=== PATIENT | female | born 1975 | race Caucasian/White ===

== ENCOUNTER 2022-03-08 12:36 | Outpatient (CLI) | payer OTHER, SELFPAY | END 2022-03-08 12:37 | disposition home or self-care (01) | PROVIDERS: PCP Family Medicine; Visit Provider Nurse Practitioner Family | DX: R31.9 Hematuria, unspecified (principal); R35.0 Frequency of micturition | CPT/HCPCS: 87086 ==

== ENCOUNTER 2022-05-28 10:36 | Outpatient (CLI) | payer OTHER, SELFPAY ==
--- NOTE | 2022-05-28 14:00 | CRLHL7_ITS ---
For Patients: As a result of the Century Cures Act, medical imaging exams and procedure reports are released immediately into your electronic medical record. You may view this report before your referring provider. If you have questions, please contact your health care provider. BILATERAL SCREENING MAMMOGRAM WITH COMPUTER-AIDED DETECTION AND TOMOSYNTHESIS TECHNIQUE: CC and MLO views were obtained. These mammographic images have been obtained using full-field digital technique. These mammographic images were interpreted with the benefit of computer-aided detection. Breast Tomosynthesis was used in this interpretation. COMPARISON FILM: 05/13/21, 04/30/20, 04/27/19. FINDINGS: The breasts are heterogeneously dense, which may obscure small masses IMPRESSION: There is no radiographic evidence for malignancy. ASSESSMENT: BI-RADS Category 2: Benign RECOMMENDATION: Routine screening mammogram in 1 year. A lay language report of this examination will be provided to the patient. Claude Fish M.D. Diagnostic Radiologist [email or web address] DYLAN/Dictated by: Claude Fish MD @ 05/28/2022 11:41:00 AM (Electronically Signed)
== END 2022-05-28 10:37 | disposition home or self-care (01) ==
LOC: MAMMO 10:37
PROVIDERS: PCP Family Medicine; Visit Provider Obstetrics & Gynecology
DX: Z12.31 Encounter for screening mammogram for malignant neoplasm of breast (principal); R92.2 Inconclusive mammogram
CPT/HCPCS: 77063; 77067

== ENCOUNTER 2022-09-11 07:35 | Outpatient (CLI) | payer OTHER, SELFPAY | END 2022-09-11 07:36 | disposition home or self-care (01) | LOC: NFLDREF 12:51 | PROVIDERS: PCP Family Medicine; Referring Provider Family Medicine; Visit Provider Obstetrics & Gynecology | DX: Z01.419 Encounter for gynecological examination (general) (routine) without abnormal findings (principal); Z13.6 Encounter for screening for cardiovascular disorders; Z13.1 Encounter for screening for diabetes mellitus | CPT/HCPCS: 80061; 82947 ==

== ENCOUNTER 2023-06-16 08:58 | Outpatient (CLI) | payer OTHER, SELFPAY ==
--- OUTSIDE RECORDS SUMMARY | 2023-06-16 09:00 | XMS_ITS | Clinical Summary ---
Author Name Unknown Organization [facility] Address [place], [place] [address] Care Team Providers Care Protein Chemist Name Role Phone Theresa Carter MD Primary Care Provide r Allergies Active Allergy Reactions Criticality Noted Date Comments Hydrocodone-Acetaminophen Nausea And Vomiting 0 09/09/2012 Medications Medication Sig Dispensed Refills Start Date End Date Status multivitamin (MVI) tablet Take 1 tablet by mouth once daily. 0 09/09/2012 Active SUMAtriptan (IMITREX) 100 mg tabletIndications: Headache syndrome Take 0.5 tablets by mouth every 2 hours if needed for Migraine. Give at minimum 2hrs apart. Max Dose: 200mg per 24hrs. 10 tablet 3 12/22/2019 Active galcanezumab-gnlm (Emgality Pen) 120 mg/mL pnij Inject 120 mg subcutaneous every 4 weeks. 0 09/18/2020 Active acetaminophen-code ine (TYLENOL #3) 300-30 mg per tabletIndications: Post-traumatic headache, not intractable, unspecified chronicity pattern Take 1 Tablet by mouth every 6 hours if needed for Pain. Max acetaminophen dose: 4000mg in 24 hrs.TAKE ONE TABLET BY MOUTH EVERY 6 HOURS IF NEEDED FOR HEADACHE MAX. ACETAMINOPHEN DOSE: 4000MG IN 24 HOURS 30 Tablet 1 09/17/2021 Active topiramate (TOPAMAX) 100 mg tablet Take 100 mg by mouth once daily. 0 09/02/2022 Active citalopram (CELEXA) 40 mg tabletIndications: Depressive disorder Take 1 Tablet (40 mg) by mouth once daily. 90 Tablet 3 09/18/2022 Active gabapentin (NEURONTIN) 300 mg capsuleIndications :Neuritis of right ulnar nerve Take 1 Capsule (300 mg) by mouth at bedtime. 30 Capsule 2 02/06/2023 Active methylphenidate HCl (Ritalin) 5 mg tabletIndications: Traumatic brain injury, without loss of consciousness, subsequent encounter Take 1 Tablet (5 mg) by mouth two times daily. 60 Tablet 0 04/22/2023 Active Active Problems Problem Noted Date Diagnosed Date Chronic post-traumatic headache, not intractable 03/24/2017 Traumatic brain injury without loss of conscious ness 03/24/2017 Depressive disorder, not elsewhere classified Resolved Problems Problem Noted Date Diagnosed Date Resolved Date Traumatic brain injury witho ut loss of consciousness 08/10/2015 03/24/2017 TBI (traumatic brain injury) 09/23/2012 08/10/2015 Word finding difficulty 09/23/2012 05/0 01/2015 Post-traumatic headache 09/09/201203/08 Encounters Date Type Department Care Team Description 04/15/2023 Telephone [facility] [address] [place] [address] Theresa Carter MD Prior Authorization (Ritalin 5 mg tablet DENIED) 04/14/2023 Refill [facility] [address] [place] [address] Theresa Carter MD Refill Request (Ritalin) from Last 3 Months Immunizations Name Administration Dates Next Due AMB INFLUENZA, IIV4 (AGE=>6MOS) MDV (Flu Clinic Only) 04/26/2019 AMB Influenza, IIV3 (Age >=3 years)(Flu Clinic O nly) 03/16/2013 COVID-19 vaccine (Booodl 30mcg/0.3mL) P F, MDV 07/24/2020,07/03/2020 Hep B (Hepatitis B (Adult) Recombinant Adjuvante d) 07/25/2021,05/16/2021 Influenza, IIV3 (Age 6-35 mos) 06/14/2012 Influenza, IIV4 05/04/2015 Influenza,CCIIV4 PRESERV FREE 03/13/2020 Td, Preservative Free (age >= 7 Years) 9 Tdap 11/20/2020,01/15/2009 Social History Tobacco Use Types Packs/Day Years Used Date Smoking Tobacco: Never Smokeless Tobacco: Never Tobacco Cessation:Counseling Given: Yes Alcohol Use Standard Drinks/Week Comments Yes 1 (1 standard drink = 0.6 oz pur e alcohol) PHQ-2 Answer Date Recorded PHQ-2 TOTAL SCORE 0 09/18/2022 Social Connections Answer Date Recorded Frequency of Communication with Friends and Fami ly Not on file 03/20/2023 Financial Resource Strain Answer Date R ecorded Difficulty of Paying Living Expenses 3 03/17/2022 Difficulty of Paying Living Expenses Not on file 03/17/2022 Food Insecurity Answer Date Recorded Worried About Running Out of Food in the Last Ye ar 1 03/17/2022 Transportation Needs Answer Date Record ed Lack of Transportation (Medical) 1 03/17/2022 Housing Stability Answer Date Recorded Unable to Pay for Housing in the Last Year 1 03/17/2022 Sex and Gender Information Value Date Recorded Sex Assigned at Female 03/14/2022 2:02 PM CDT Gender Identity Not on file Sexual Orientation Not on file Obstetrics History Para Term AB IAB SAB Ectopic Multiple Livin g Live Births 4 2 2 2 Date Outcome GA Total Labor Labor/2nd/3rd Weight Sex Delivery Anes PTL Ellie A1 A5 Name Cl in Last Filed Vital Signs Vital Sign Reading Time Taken Comments Blood Pressure 126/84 02/06/2023 10:04 AM CDT Pulse 77 02/06/2023 10:04 AM CDT Temperature 37 ??C (98.6 ??F) 02/06/2023 10:04 AM CDT Respiratory Rate 10 07/04/2022 9:45 AM RACKING TECHNICIAN Oxygen Saturation 99% 02/06/2023 10:04 AM CDT Inhaled Oxygen Concentration - - Weight 70 kg (154 lb 6.4 oz) 02/06/2023 10:04 AM CDT shoes on Height 161.3 cm (5' 3.5) 09/18/2022 7:07 AM CDT Body Mass Index 26.92 09/18/2022 7:07 AM CDT Plan of Treatment Upcoming Encounters Date Type Department Care Team (Late st Contact Info) Description 06/25/2023 7:00 AM RACKING TECHNICIAN Office Visit [facility] [address] [place] [address] Theresa Carter MD [address] [place] [address] Health Maintenance Due Date Last Done Comments HIV for age 15-65 1988 Hepatitis C screening for age 18-79 12/05/1991 Lipids for age 45-75 2018 09/21/2013 COVID-19 vaccine series (2022- season) 2023 04/19/2021, 07/24/2020, 07/03/2020 Influenza for age 9-49 02/06/2023 , 04/26/2019, 05/04/2015, Additional history exists Mammogram for age 45-75 05/28/2023 05/28/20, 05/24/2021, 05/13/2021, Additional history exists BMI (ht and wt on same day) for age 18+ 09/19/2023 09/18/2022, 09/17/2021, 06/11/2021, Additional history exists Depression screening for age 12+ 09/19/2023 09/18/2022, 09/20/2021, 09/18/2021, Additional history exists Pap test for age 21-65 09/04/2024 , 09/04/2021, 01/10/2019, Additional history exists Tetanus booster 11/20/2030 11/20/2020, 08/0 10/2018, 01/15/2009 Colonoscopy through age 75 07/04/203207/04, 07/04/2022, 07/04/2022 Tdap Completed 11/20/2020, 01/15/2009 Pneumococcal series for age 6-64 Aged Out No longer eligible based on patient's age to complete this topic Care Teams Protein Chemist Relationship Specialty Start Date End Date Theresa Carter MD [address] [place] [address] PCP - General Family Practice 09/08/12
--- NOTE | 2023-06-16 09:15 | CRLHL7_ITS ---
For Patients: As a result of the Cures Act, medical imaging exams and procedure reports are released immediately into your electronic medical record. You may view this report before your referring provider. If you have questions, please contact your health care provider. BILATERAL SCREENING MAMMOGRAM WITH COMPUTER-AIDED DETECTION AND TOMOSYNTHESIS TECHNIQUE: CC and MLO views were obtained. These mammographic images have been obtained using full-field digital technique. These mammographic images were interpreted with the benefit of computer-aided detection. Breast Tomosynthesis was used in this interpretation. COMPARISON FILM: 05/28/22, 05/13/21, 04/30/20. FINDINGS: The breasts are heterogeneously dense, which may obscure small masses IMPRESSION: There is no radiographic evidence for malignancy. ASSESSMENT: BI-RADS Category 2: Benign RECOMMENDATION: Routine screening mammogram in 1 year. A lay language report of this examination will be provided to the patient. Bernard Raza M.D. Diagnostic/Nuclear Medicine Radiologist [email or web address] DYLAN/Dictated by: Bernard Raza MD @ 06/16/2023 10:20:00 AM (Electronically Signed)
== END 2023-06-16 08:59 | disposition home or self-care (01) ==
LOC: MAMMO 09:00
PROVIDERS: PCP Family Medicine; Visit Provider Obstetrics & Gynecology
DX: Z12.31 Encounter for screening mammogram for malignant neoplasm of breast (principal); R92.2 Inconclusive mammogram
CPT/HCPCS: 77063; 77067

== ENCOUNTER 2023-08-05 08:32 | Outpatient (CLI) | payer OTHER, SELFPAY ==
--- NOTE | 2023-08-05 | US_ITS ---
Patient: KING LYNN Facility:?[facility] Patient ID:?[id number] Site Patient ID:?[id number]. Site :?1975 Study:?US-Breast Right DR OLGUIN TO READ-08/05/2023 9:57:54 AM Ordering Physician:?MATTEO DELANEY Final Report: ULTRASOUND-GUIDED RIGHT BREAST CYST ASPIRATION CLINICAL HISTORY: Painful cyst right breast. COMPARISON STUDIES: Mammogram and ultrasound 08/05/2023. TECHNIQUE: Real-time ultrasound with image documentation was used for targeting the breast lesion. Ultrasound-guided cyst aspiration performed with an 18-gauge needle. CONSENT and TIME OUT: The procedure, risks, and alternatives were explained to the patient and a consent was signed. Ida Protocol was followed including pre-procedure verification that relevant information/documentation was available, reviewed and properly matched to the patient; consent accurate and complete; and equipment and supplies available. Time Out was conducted just prior to starting procedure to verify the four required elements: patient identity, correct side/site marked (if applicable), procedure, relevant images/results properly labeled and displayed (if applicable). PROCEDURE: The patient was positioned supine on the ultrasound table. The breast was prepped with ChloraPrep. 5 cc 1 percent lidocaine used for local anesthesia. 7 cc of cystic fluid was removed and discarded. No residual cyst remained. LATERALITY: Right breast. LESION: Circumscribed anechoic simple cyst measuring 3.3 x 1.8 x 2.3 cm at 9 o`clock 4 cm from the nipple. IMPRESSION: Ultrasound-guided right breast cyst aspiration. ACR not applicable Dictated by Claude Olguin MD @ 08/05/2023 12:05:42 PM jj/Dictated by: Claude Olguin MD @ 08/05/2023 12:05:00 PM Signed by:?Claude Olguin MD @08/05/2023 12:59:20 PM (Electronic Signature)
--- NOTE | 2023-08-05 08:45 | MM_ITS ---
Patient: KING LYNN Facility:?[facility] Patient ID:?[id number] Site Patient ID:?[id number]. Site :?1975 Study:?XRay-Breast Right 3D W/CAD-08/05/2023 9:11:33 AM Ordering Physician:Radha September Final Report: DIGITAL DIAGNOSTIC RIGHT MAMMOGRAM USING TOMOSYNTHESIS AND COMPUTER-AIDED DETECTION RIGHT BREAST ULTRASOUND CLINICAL HISTORY: RIGHT breast lump. COMPARISON: 06/16/2023, 05/28/2022, 05/24/2021. TECHNIQUE: Digital RIGHT mammogram in two projections. Tomosynthesis and CAD utilized. Real-time ultrasound imaging of RIGHT breast with imaging documentation. BREAST COMPOSITION: The breast is heterogeneously dense, which may obscure small masses. FINDINGS: 3D CC/MLO right breast mammogram images submitted. Nodular density is present within the lateral right breast without architectural distortion. No adenopathy or suspicious calcifications. Biopsy clip again noted. Targeted right breast ultrasound performed 9 o`clock 4 cm from the nipple. In this location, there is a simple anechoic cyst with increased through- transmission measuring 3.3 x 1.8 x 2.3 cm. IMPRESSION: Benign cyst right breast 9 o`clock 4 cm from the nipple measuring 3.3 cm. RECOMMENDATIONS: Aspiration will be performed subsequently. BI-RADS Category 2: Benign A lay language report of this examination will be provided to the patient. Dictated by Claude Fish MD @ 08/05/2023 12:03:22 PM jj/Dictated by: Claude Fish MD @ 08/05/2023 12:03:00 PM Signed by:?Claude Fish MD @08/05/2023 12:59:17 PM (Electronic Signature)
--- NOTE | 2023-08-05 09:15 | US_ITS ---
Patient: KING LYNN Facility:?[facility] Patient ID:?[id number] Site Patient ID:?[id number]. Site :?1975 Study:?US-Breast Right DR OLGUIN TO READ-08/05/2023 9:43:01 AM Ordering Physician:?MATTEO DELANEY Final Report: PLEASE SEE DIGITAL DIAGNOSTIC RIGHT MAMMOGRAM PERFORMED SAME DAY CRL:primo tillman/Dictated by: Claude Olguin MD @ 08/05/2023 12:03:00 PM Signed by:?Claude Olguin MD @08/05/2023 12:59:19 PM (Electronic Signature)
== END 2023-08-05 08:33 | disposition home or self-care (01) ==
PROVIDERS: PCP Family Medicine; Visit Provider Physician Assistant
DX: N63.10 Unspecified lump in the right breast, unspecified quadrant (principal); N60.01 Solitary cyst of right breast
CPT/HCPCS: 19000; 76642; 76942; 77065; G0279

== ENCOUNTER 2023-09-07 15:15 | Outpatient (RCR) | payer OTHER, SELFPAY ==
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
== END 2024-01-05 23:59 | disposition home or self-care (01) ==
PROVIDERS: PCP Family Medicine; Visit Provider Family Medicine
DX: G56.21 Lesion of ulnar nerve, right upper limb (principal); Z02.6 Encounter for examination for insurance purposes; Z51.89 Encounter for other specified aftercare
CPT/HCPCS: 97035; 97110; 97140; 97165; L3808; X5282

== ENCOUNTER 2024-06-24 11:21 | Outpatient (CLI) | payer OTHER, SELFPAY ==
--- NOTE | 2024-06-24 11:30 | CRLHL7_ITS ---
For Patients: As a result of the Century Cures Act, medical imaging exams and procedure reports are released immediately into your electronic medical record. You may view this report before your referring provider. If you have questions, please contact your health care provider. BILATERAL SCREENING MAMMOGRAM WITH COMPUTER-AIDED DETECTION AND TOMOSYNTHESIS TECHNIQUE: CC and MLO views were obtained. Also XCCL 2D right images were obtained. These mammographic images have been obtained using full-field digital technique. These mammographic images were interpreted with the benefit of computer-aided detection. Breast Tomosynthesis was used in this interpretation. COMPARISON FILM: 08/05/23, 06/26/23, 05/28/22. FINDINGS: The breasts are heterogeneously dense, which may obscure small masses IMPRESSION: There is no radiographic evidence for malignancy. ASSESSMENT: BI-RADS Category 2: Benign RECOMMENDATION: Routine screening mammogram in 1 year. A lay language report of this examination will be provided to the patient. Claude Fish M.D. Diagnostic Radiologist [email or web address] TYRON/humberto / bM/Dictated by: Claude Fish MD @ 06/24/2024 1:02:00 PM (Electronically Signed)
== END 2024-06-24 11:22 | disposition home or self-care (01) ==
PROVIDERS: PCP Family Medicine; Visit Provider Obstetrics & Gynecology
DX: Z12.31 Encounter for screening mammogram for malignant neoplasm of breast (principal); R92.333 Mammographic heterogeneous density, bilateral breasts
CPT/HCPCS: 77063; 77067

== ENCOUNTER 2024-09-16 10:27 | Outpatient (CLI) | payer OTHER, SELFPAY ==
[2024-09-19 13:00] LABS: HPV Source Cervix; HPV, High Risk by TMA Not Detected
== END 2024-09-16 10:28 | disposition home or self-care (01) ==
PROVIDERS: PCP Family Medicine; Visit Provider Obstetrics & Gynecology
DX: Z12.4 Encounter for screening for malignant neoplasm of cervix (principal); Z11.51 Encounter for screening for human papillomavirus (HPV)
CPT/HCPCS: 87624; 87625; 88141; 88142